=== PATIENT | female | born 1960 | race Caucasian/White ===

== ENCOUNTER → 2020-04-06 | Outpatient (CLI) | payer MEDICARE, OTHER ==
--- NOTE | 2020-04-06 13:45 | Diagnostic Imaging Report ---
EXAMINATION: Right foot at 11:27 a.m. INDICATION: Follow-up fracture. Three views were obtained. There are no prior studies available for comparison. There is an oblique slightly displaced fracture through the neck of the fifth metatarsal. There does seem to be a small amount of healing callus formation in this area. No other fracture or acute bony abnormality is identified. The osseous structures are demineralized and there are moderate degenerative changes involving the PIP and DIP joints of each digit. The Lisfranc joint seems well maintained. The soft tissues are unremarkable. IMPRESSION: 1. There is an oblique slightly displaced healing fracture of the neck of the fifth metatarsal. There is no acute or subacute bony abnormality noted otherwise. 2. If previous studies are available they would be helpful for comparison. Dictated by: Dictated on workstation # [id number]
== END ==
LOC: RAD FS 11:21
PROVIDERS: ATTEND Family Medicine
DX: S92.351D Displaced fracture of fifth metatarsal bone, right foot, subsequent encounter for fracture with routine healing (principal); X58.XXXD Exposure to other specified factors, subsequent encounter
CPT/HCPCS: 73630